=== PATIENT | female | born 1975 | race Caucasian/White ===

== ENCOUNTER 2018-03-09 13:48 | Emergency (ER) | payer BC ==
[2018-03-09 14:36] VITALS: BP 109/67
--- NOTE | 2018-03-09 15:08 | UC ---
Bite Injury/Animal HPI - HPI Summary HPI Summary: Found a bat on the morning of03-07-18 in her bedroom. Denies presence of bite anderson. She was sleeping in the room with her daughter. LMD 17 days ago - History of Current Complaint Chief Complaint: UCBiteInjury Stated Complaint: RABIES EXPOSURE Time Seen by Provider: 03/09/18 14:58 Hx Obtained From: Patient Hx Last Menstrual Period: 10/06/14 ?: No Pain Intensity: 0 Onset/Duration: Sudden Onset, Lasting Hours Type of Bite: Animal Has Animal Been Immunized?: No Alleviating Factor(s): Nothing Associated Signs And Symptoms: Positive: Negative Animal Available for Observation: No Animal Control Notified: Yes - Risk Factors Infection/Sepsis Risk Factors: Negative - Allergies/Home Medications Allergies/Adverse Reactions: Allergies Allergy/AdvReac Type Severity Reaction Status Date / Time No Known Allergies Allergy Verified 10/07/14 08:55 Home Medications: Home Medications Fluticasone NASAL SPRAY 50MCG* [Flonase NASAL SPRAY 50MCG*] 2 spray BOTH NARES DAILY 03/09/18 [History Confirmed 03/09/18] PMH/Surg Hx/FS Hx/Imm Hx Previously Healthy: Yes - Surgical History Surgical History: None - Family History Known Family History: Positive: Other - hypothyroidsm - Social History Alcohol Use: Rare Substance Use Type: None Smoking Status (MU): Former Smoker - Immunization History Most Recent Influenza Vaccination: no Review of Systems Constitutional: Negative Skin: Negative Eyes: Negative ENT: Negative Respiratory: Negative Cardiovascular: Negative Gastrointestinal: Negative Genitourinary: Negative Motor: Negative Neurovascular: Negative Neurological: Negative Psychological: Negative All Other Systems Reviewed And Are Negative: Yes Physical Exam Triage Information Reviewed: Yes Appearance: Well-Appearing, No Pain Distress, Well-Nourished Vital Signs: Initial Vital Signs Temp 98.2 F 03/09/18 14:32 Pulse 82 03/09/18 14:32 Resp 14 03/09/18 14:32 BP 109/67 03/09/18 14:32 Pulse Ox 98 03/09/18 14:32 Vital Signs Reviewed: Yes Eye Exam: Normal Eyes: Positive: Conjunctiva Clear ENT: Positive: Normal ENT inspection, Hearing grossly normal, Pharynx normal Neck: Positive: Supple, Nontender, No Lymphadenopathy Respiratory: Positive: Chest non-tender, Lungs clear, Normal breath sounds Cardiovascular: Positive: RRR, No Murmur, Pulses Normal Abdomen Description: Positive: Nontender, No Organomegaly, Soft Bite Injury Course/Dx - Course Course Of Treatment: Rabies immunoglobulin and Imovax where administered during this visit, f/u for 2nd dose at [facility]. Patient declined Tdap, possible immunization for school a year ago, will check with PCP - Differential Dx/Diagnosis Provider Diagnoses: Rabies post exposure prophylaxis Discharge - Sign-Out/Discharge Documenting (check all that apply): Patient Departure - Discharge Plan Condition: Good Disposition: HOME Patient Education Materials: Rabies Vaccine (By injection), Rabies Immune Globulin (By injection) Referrals: Suzanne Fernandez MD [Primary Care Provider] - - Billing Disposition and Condition Condition: GOOD Disposition: Home
[2018-03-09] MEDS ORDERED: Rabies VIRUS VACCINE (Imovax)* 2.5 UNIT/ML 1 ML IM ONE (15:09)
[2018-03-09] MEDS ORDERED: Rabies Immune Globulin 10 ML* 150 UNIT/ML VIAL IM ONE (15:11)
== END 2018-03-09 16:11 | disposition home or self-care (01) ==
LOC: UCEAST 13:48
DX: Z20.3 Contact with and (suspected) exposure to rabies (principal); Z29.14 Encounter for prophylactic rabies immune globulin; Z87.891 Personal history of nicotine dependence
CPT/HCPCS: 90375; 90471; 90472; 99211; G0463